=== PATIENT | female | born 1985 | race Caucasian/White ===

== ENCOUNTER 2018-09-01 10:50 | Emergency (ER) | payer MEDICAID ==
[~2018-09-01] VITALS: Ht 165.1 cm; Wt 81.6 kg
[2018-09-01 11:00] VITALS: BP 123/81
--- NOTE | 2018-09-01 11:05 | NUR ---
33 Y F BIB FAMILY WITH C/O HEARING CLICKING SOUND INITIALLY ON HER LT EAR AND NOW ON HER RT EAR WELL X 1 WK. PT STATES THE CLICKING FEELS IF A CLOCK WERE INSIDE OF HER HEAD. VSS. [id number]. STATES HER SYMPTOMS INCREASE HER ANXIETY. BED IS DOWN, LOCKED, BED RAIL X 1, ERMD NOTIFIED. DENIES HEARING LOSS, PAIN, DISCHARGE, OR NVD HX; DENIES RX; DENIES
--- NOTE | 2018-09-01 11:33 | NUR ---
Dr. Strauss evaluating patient at bedside.
--- NOTE | 2018-09-01 12:19 | NUR ---
PT LEFT WITHOUT DISCHARGE INSTRUCTIONS
--- NOTE | 2018-09-01 12:20 | NUR ---
Patient discharged with v/s stable. Written and verbal after care instructions given and explained. Patient verbalized understanding. Ambulatory with steady gait. All questions addressed prior to discharge. Advised to follow up with PMD.
== END 2018-09-01 12:20 | disposition home or self-care (01) ==
LOC: MED 10:50
DX: T70.0XXA Otitic barotrauma, initial encounter (principal); X58.XXXA Exposure to other specified factors, initial encounter
CPT/HCPCS: 99281

== ENCOUNTER 2021-08-11 21:18 | Emergency (ER) | payer MEDICAID ==
[~2021-08-11] VITALS: Ht 167.6 cm; Wt 87.5 kg
[2021-08-11 21:20] VITALS: BP 150/89
--- NOTE | 2021-08-11 21:20 | NUR ---
TO LOBBY A/W BED AMBULATORY
--- NOTE | 2021-08-11 21:54 | NUR ---
LABS OBTAINED BY UX ARCHITECT
--- NOTE | 2021-08-11 21:54 | NUR ---
pt taken to bed 05.
[2021-08-11 22:06] LABS: BASOPHILS % (AUTO) 0.4 % (0.0-2.0); EOSINOPHILS # (AUTO) 0.3 K/uL (0-0.4); EOSINOPHILS % (AUTO) 4.5 % (0.0-4.0); HEMATOCRIT 32.4 % (36-48); HEMOGLOBIN 10.3 g/dL (12.0-16.0); LYMPHOCYTES # (AUTO) 1.6 K/uL (2.5-16.5); LYMPHOCYTES % (AUTO) 22.6 % (20.5-51.1); MEAN CORPUSCULAR HEMOGLOBIN 25 pg (27-31); MEAN CORPUSCULAR HGB CONC 32 g/dL (33-37); MEAN CORPUSCULAR VOLUME 78.3 fL (80-94); MONOCYTES # (AUTO) 0.5 K/uL (0.8-1.0); MONOCYTES % (AUTO) 6.8 % (1.7-9.3); NEUTROPHILS # (AUTO) 4.7 K/uL (1.8-7.7); NEUTROPHILS % (AUTO) 65.7 % (42.2-75.2); PLATELET COUNT (AUTO) 378 K/uL (140-450); RED BLOOD CELL COUNT(AUTO) 4.14 MIL/uL (4.20-5.40); RED CELL DISTRIBUTION WIDTH 14.6 % (11.6-13.7); WHITE BLOOD COUNT (AUTO) 7.1 K/uL (4.8-10.8)
--- NOTE | 2021-08-11 22:13 | NUR ---
36 Y/O FEMALE BIB , C/O SYNCOPAL EVENT PRIOR TO ER ARRIVAL. PATIENT PRESENTS TO ED WITH ABDOMINAL PAIN AND RECTAL BLEEDING. PT STATES SHE HAS A HX OF COLITIS AND HAS BEEN [employer] UPS; INTERMITTENT RECTAL BLEEDING FOR THE PAST MONTH WITH PUS FOR THE PAST WEE; TODAY SHE HAD ASSOCIATED PAIN AND A SYNCOPAL EVENT WITH 5 SECONDS OF LOC. DENIES DIARRHEA; SKIN IS PINK/WARM/DRY; AAOX4 WITH EVEN AND STEADY GAIT; LUNGS CLEAR BL; HR EVEN AND REGULAR; PT DENIES ANY FEVER, CP, SOB, OR COUGH AT THIS TIME; PATIENT STATES PAIN OF 0/10 AT THIS TIME; VSS; PATIENT POSITIONED FOR COMFORT; HOB ELEVATED; BEDRAILS UP X2; BED DOWN. ER MD MADE AWARE OF PT STATUS. HX: COLITIS NKDA MEDS: UNKNOWN COLITIS MEDS
--- NOTE | 2021-08-11 22:17 | NUR ---
provided pt wt urine cup and water
--- NOTE | 2021-08-11 22:18 | NUR ---
PT WAS GIVEN CUP FOR URINE BUT STATES THAT SHE IS UNABLE TO GO AT THIS TIME.
[2021-08-11] MEDS ORDERED: ONDANSETRON 4 MG ODT PO ONE (22:20)
[2021-08-11] MEDS ORDERED: ALUMINUM HYD/MAG/SIMETHICONE 30 ML UDC PO ONE (22:20)
[2021-08-11 22:26] LABS: ALBUMIN 3.4 g/dL (3.4-5.0); ANION GAP 10.3 (8-16); CARBON DIOXIDE 27.5 mmol/L (21-32); CREATININE 0.5 mg/dL (0.6-1.3); POTASSIUM 3.8 mmol/L (3.5-5.1); TOTAL BILIRUBIN 0.2 mg/dL (0.0-1.0)
--- NOTE | 2021-08-11 22:37 | NUR ---
walked urine sample over to lab
--- NOTE | 2021-08-11 22:41 | NUR ---
PT TAKEN TO CT VIA JM
[2021-08-11 22:51] LABS: APPEARANCE,URINE CLEAR (CLEAR); BILIRUBIN,URINE NEGATIVE (NEGATIVE); BLOOD, URINE TRACE-L (NEGATIVE); COLOR,URINE YELLOW (YELLOW); LEUKOCYTE ESTERASE ,URINE NEGATIVE (NEGATIVE); NITRITE, URINE NEGATIVE (NEGATIVE); UGLUCOSE NEGATIVE (NEGATIVE)
[2021-08-11 23:43] LABS: RBC,URINE 0-5 /HPF (0-5); WBC,URINE 0-5 /HPF (0-5)
--- NOTE | 2021-08-12 01:08 | NUR ---
PT IS RESTING COMFORTABLY IN BED; EASILY AROUSABLE; SPOUSE AT BEDSIDE.
[2021-08-12 02:29] VITALS: BP 105/64
--- NOTE | 2021-08-12 02:31 | NUR ---
Patient discharged with v/s stable. Written and verbal after care instructions given and explained. Patient verbalized understanding. Ambulatory with steady gait. All questions addressed prior to discharge. Advised to follow up with PMD. VSS, A/OX4, UNLABORED BREATHING, AMBULATORY, AND CALM DEMEANOR.
== END 2021-08-12 02:27 | disposition home or self-care (01) ==
LOC: MED 21:18
DX: K62.89 Other specified diseases of anus and rectum (principal); K62.5 Hemorrhage of anus and rectum; R55 Syncope and collapse; D64.9 Anemia, unspecified; F17.210 Nicotine dependence, cigarettes, uncomplicated; Z98.890 Other specified postprocedural states
CPT/HCPCS: 36415; 74176; 80053; 81001; 81025; 85025; 86886; 86900; 86901; 99285; Q0162

== ENCOUNTER 2021-08-26 21:15 | Emergency (ER) | payer MEDICAID ==
[~2021-08-26] VITALS: Ht 167.6 cm; Wt 86.2 kg
[2021-08-26 21:25] VITALS: BP 120/62
--- NOTE | 2021-08-26 21:25 | NUR ---
TO BED VIA W/C
--- NOTE | 2021-08-26 21:34 | NUR ---
RAD AT BEDSIDE.
--- NOTE | 2021-08-26 21:41 | NUR ---
36 YO F BIB SELF WITH C.C OF 03/12 RT ANKLE PAIN S/P XYESTERDAY. PT STATES HER 12 YO SON WAS CHASING AFTER HER AFTER SHE TOOK HIS PHONE, TRIPPED AND FELL. DENIES LOC. PT STATES SHE MAY HAVE ROLLED HER ANKLE. PT TOOK TYLENOL THIS AM WITH NO RELIEF. PT STATES SHE DOES NOT WANT NARCOTICS PREFERS IBUPROFEN. LIMITED ROM D/T MOVEMENT. SWELLING PRESENT. HX:ANXIETY RX:lexapro NKA
[2021-08-26] MEDS ORDERED: NAPR-54 PO (22:30)
[2021-08-26 22:50] VITALS: BP 120/62
== END 2021-08-26 22:50 | disposition home or self-care (01) ==
LOC: MED 21:15
DX: S93.401A Sprain of unspecified ligament of right ankle, initial encounter (principal); Z79.899 Other long term (current) drug therapy; Z98.890 Other specified postprocedural states; W18.09XA Striking against other object with subsequent fall, initial encounter; Y93.02 Activity, running; Y92.89 Other specified places as the place of occurrence of the external cause; Y99.8 Other external cause status
CPT/HCPCS: 29505; 73610; 99283

== ENCOUNTER 2022-04-17 18:19 | Emergency (ER) | payer MEDICAID, OTHER ==
[~2022-04-17] VITALS: Ht 167.6 cm; Wt 90.7 kg
[~2022-04-17 18:19] MED LIST: NAPR-54 PO
--- NOTE | 2022-04-17 19:05 | NUR ---
CALLEDX1. NO SHOW.
--- NOTE | 2022-04-17 19:05 | NUR ---
Deangelo bo in EDM - 04/17/22 at 2019 by [facility] PATIENT LEFT WITHOUT BEING SEEN BY DR. DANIELSON. NO FURTHER CARE PROVIDED FOR PATIENT.
--- NOTE | 2022-04-17 19:10 | NUR ---
Deangelo bo in [facility] - 04/17/22 at 2019 by JUAN CALLED FOR THR SECOND TIME , NO RESPONSE
--- NOTE | 2022-04-17 19:18 | NUR ---
Deangelo bo in [facility] - 04/17/22 at 2019 by JUAN CALLED FOR THE THIRD TIME , NO RESPONSE
[2022-04-17 20:13] VITALS: BP 146/87
--- NOTE | 2022-04-17 20:15 | NUR ---
PATIENT RETURN BACK .
--- NOTE | 2022-04-17 20:16 | NUR ---
TO LOBBY A/W BED AMBULATORY
[2022-04-17 22:38] LABS: BASOPHILS % (AUTO) 0.4 % (0.0-2.0); EOSINOPHILS # (AUTO) 0.5 K/uL (0-0.4); EOSINOPHILS % (AUTO) 6.5 % (0.0-4.0); HEMATOCRIT 26.2 % (36-48); HEMOGLOBIN 7.9 g/dL (12.0-16.0); LYMPHOCYTES # (AUTO) 1.9 K/uL (2.5-16.5); LYMPHOCYTES % (AUTO) 25.8 % (20.5-51.1); MEAN CORPUSCULAR HEMOGLOBIN 20 pg (27-31); MEAN CORPUSCULAR HGB CONC 30 g/dL (33-37); MEAN CORPUSCULAR VOLUME 65.4 fL (80-94); MONOCYTES # (AUTO) 0.5 K/uL (0.8-1.0); MONOCYTES % (AUTO) 6.8 % (1.7-9.3); NEUTROPHILS # (AUTO) 4.5 K/uL (1.8-7.7); NEUTROPHILS % (AUTO) 60.5 % (42.2-75.2); PLATELET COUNT (AUTO) 368 K/uL (140-450); RED BLOOD CELL COUNT(AUTO) 4.01 MIL/uL (4.20-5.40); RED CELL DISTRIBUTION WIDTH 17.3 % (11.6-13.7); WHITE BLOOD COUNT (AUTO) 7.4 K/uL (4.8-10.8)
[2022-04-17 22:39] LABS: APPEARANCE,URINE CLEAR (CLEAR); BILIRUBIN,URINE NEGATIVE (NEGATIVE); BLOOD, URINE NEGATIVE (NEGATIVE); COLOR,URINE YELLOW (YELLOW); LEUKOCYTE ESTERASE ,URINE NEGATIVE (NEGATIVE); NITRITE, URINE NEGATIVE (NEGATIVE); UGLUCOSE NEGATIVE (NEGATIVE)
[2022-04-17 22:55] LABS: ALBUMIN 2.9 g/dL (3.4-5.0); ANION GAP 8.8 (8-16); CARBON DIOXIDE 31.7 mmol/L (21-32); CREATININE 0.7 mg/dL (0.6-1.3); POTASSIUM 3.5 mmol/L (3.5-5.1); TOTAL BILIRUBIN 0.2 mg/dL (0.0-1.0)
[2022-04-18] MEDS ORDERED: FERR325E14 PO (00:35)
[2022-04-18 00:45] VITALS: BP 146/87
--- NOTE | 2022-04-18 00:45 | NUR ---
Patient discharged with v/s stable. Written and verbal after care instructions given and explained. Patient alert, oriented and verbalized understanding of instructions. Ambulatory with steady gait. All questions addressed prior to discharge. ID band removed. Patient advised to follow up with PMD. Rx of IRON given. Patient educated on indication of medication including possible reaction and side effects. Opportunity to ask questions provided and answered.
== END 2022-04-18 00:45 | disposition home or self-care (01) ==
LOC: MED 18:19
DX: K92.2 Gastrointestinal hemorrhage, unspecified (principal); D64.9 Anemia, unspecified; K51.90 Ulcerative colitis, unspecified, without complications
CPT/HCPCS: 36415; 74018; 80053; 81003; 83690; 85025; 99284

== ENCOUNTER 2022-05-30 01:05 | Emergency (ER) | payer MEDICAID ==
[~2022-05-30] VITALS: Ht 167.6 cm; Wt 113.4 kg
[~2022-05-30 01:05] MED LIST changes: +FERR325E14 PO
[2022-05-30 01:30] VITALS: BP 136/72
--- NOTE | 2022-05-30 01:34 | NUR ---
TO LOBBY A/W BED AMBULATORY
[2022-05-30] MEDS ORDERED: MORPHINE SULFATE 2 MG/ML SYR IVP STA (02:54)
[2022-05-30] MEDS ORDERED: METOCLOPRAMIDE 10 MG/2 ML INJ VIAL IVP ONE (02:55)
[2022-05-30] MEDS ORDERED: diphenhydrAMINE 50 MG/ML VIAL IVP ONE (02:55)
[2022-05-30] MEDS ORDERED: NACL 0.9% 1,000 ML IV ONE ×2 (02:55→05:15)
[2022-05-30 03:14] LABS: BASOPHILS % (AUTO) 0.2 % (0.0-2.0); EOSINOPHILS # (AUTO) 0.8 K/uL (0-0.4); HEMATOCRIT 31.2 % (36-48); HEMOGLOBIN 9.8 g/dL (12.0-16.0); LYMPHOCYTES # (AUTO) 1.2 K/uL (2.5-16.5); LYMPHOCYTES % (AUTO) 11.9 % (20.5-51.1); MEAN CORPUSCULAR HEMOGLOBIN 22 pg (27-31); MEAN CORPUSCULAR HGB CONC 31 g/dL (33-37); MEAN CORPUSCULAR VOLUME 71.7 fL (80-94); MONOCYTES # (AUTO) 0.8 K/uL (0.8-1.0); NEUTROPHILS # (AUTO) 7.5 K/uL (1.8-7.7); NEUTROPHILS % (AUTO) 71.9 % (42.2-75.2); PLATELET COUNT (AUTO) 488 K/uL (140-450); RED BLOOD CELL COUNT(AUTO) 4.35 MIL/uL (4.20-5.40); RED CELL DISTRIBUTION WIDTH 24.3 % (11.6-13.7); WHITE BLOOD COUNT (AUTO) 10.4 K/uL (4.8-10.8)
[2022-05-30 03:27] LABS: APPEARANCE,URINE CLEAR (CLEAR); BILIRUBIN,URINE 2+ (NEGATIVE); BLOOD, URINE 3+ (NEGATIVE); COLOR,URINE BROWN (YELLOW); LEUKOCYTE ESTERASE ,URINE NEGATIVE (NEGATIVE); NITRITE, URINE NEGATIVE (NEGATIVE); PH,URINE 5.5 (5.0-9.0); UGLUCOSE NEGATIVE (NEGATIVE)
[2022-05-30 03:35] LABS: RBC,URINE >20 (MANY) /HPF (0-5); WBC,URINE 0-5 /HPF (0-5)
[2022-05-30 03:43] LABS: ALBUMIN 2.7 g/dL (3.4-5.0); ANION GAP 13.8 (8-16); CARBON DIOXIDE 29.6 mmol/L (21-32); CREATININE 0.7 mg/dL (0.6-1.3); POTASSIUM 3.4 mmol/L (3.5-5.1); TOTAL BILIRUBIN 0.2 mg/dL (0.0-1.0)
[2022-05-30] MEDS ORDERED: DICYCLOMINE HCL LIQUID 20 MG, ALUMINUM HYD/MAG/SIMETHICONE 30 ML, LIDOCAINE VISCOUS 2% ... PO ONE ×3 (05:15)
[2022-05-30] MEDS ORDERED: DICYCLOMINE HCL LIQUID 10 MG/5 ML UDC ONE (05:18)
[2022-05-30] MEDS ORDERED: ALUMINUM HYD/MAG/SIMETHICONE 30 ML UDC ONE (05:18)
[2022-05-30] MEDS ORDERED: ONDA-188 PO (06:06)
[2022-05-30] MEDS ORDERED: FAMO-90 PO (06:06)
[2022-05-30] MEDS ORDERED: ACET-9525 PO ×2 (06:06→06:08)
[2022-05-30 07:04] VITALS: BP 106/66
--- NOTE | 2022-05-30 07:09 | NUR ---
Patient discharged with v/s stable. Written and verbal after care instructions given and explained. Patient alert, oriented and verbalized understanding of instructions. Ambulatory with steady gait. All questions addressed prior to discharge. ID band removed. Patient advised to follow up with PMD. Rx of norco, famotidine, zofran given. Patient educated on indication of medication including possible reaction and side effects. Opportunity to ask questions provided and answered.
[2022-05-31] MEDS ORDERED: ONDANSETRON 4 MG/2 ML VIAL ONE (22:12)
[2022-05-31] MEDS ORDERED: MESA500C PO (23:44)
[2022-05-31] MEDS ORDERED: PRED10TA5 PO (23:44)
[2022-05-31] MEDS ORDERED: IMU50 PO (23:44)
[2022-05-31] MEDS ORDERED: ESCI20TA PO (23:44)
[2022-05-31] MEDS ORDERED: ACET-10509 PO (23:46)
[2022-05-31] MEDS ORDERED: CALC-575 PO (23:46)
== END 2022-05-30 07:09 | disposition home or self-care (01) ==
LOC: MED 01:05
DX: K85.90 Acute pancreatitis without necrosis or infection, unspecified (principal); K51.90 Ulcerative colitis, unspecified, without complications; R11.10 Vomiting, unspecified; Z79.899 Other long term (current) drug therapy
CPT/HCPCS: 36415; 74176; 80053; 81001; 81025; 83690; 85025; 85651; 86140; 87086; 96361; 96374; 96375; 99285; J1200; J2270; J2765; J2405

== ENCOUNTER 2022-05-31 17:32 | Inpatient (IN) | payer MEDICAID ==
[~2022-05-31] VITALS: Ht 167.6 cm; Wt 83.0 kg
[~2022-05-31 17:32] MED LIST changes: +ACET-9525 PO; +FAMO-90 PO; +ONDA-188 PO
[2022-05-31 17:55] VITALS: BP 132/70
[2022-05-31] MEDS ORDERED: MORPHINE SULFATE 4 MG/ML SYR IVP ONE (18:50)
[2022-05-31] MEDS ORDERED: DICYCLOMINE 20 MG/2 ML VIAL IM ONE (18:50)
[2022-05-31] MEDS ORDERED: NACL 0.9% 2,000 ML IV ONE (18:50)
[2022-05-31] MEDS ORDERED: ONDANSETRON 4 MG/2 ML VIAL IVP ONE (18:50)
[2022-05-31 19:11] LABS: BASOPHILS % (AUTO) 0.5 % (0.0-2.0); EOSINOPHILS % (AUTO) 0.5 % (0.0-4.0); HEMATOCRIT 30.3 % (36-48); HEMOGLOBIN 9.3 g/dL (12.0-16.0); LYMPHOCYTES # (AUTO) 1.1 K/uL (2.5-16.5); LYMPHOCYTES % (AUTO) 12.1 % (20.5-51.1); MEAN CORPUSCULAR HEMOGLOBIN 22 pg (27-31); MEAN CORPUSCULAR HGB CONC 31 g/dL (33-37); MEAN CORPUSCULAR VOLUME 72.6 fL (80-94); MONOCYTES # (AUTO) 0.4 K/uL (0.8-1.0); MONOCYTES % (AUTO) 4.4 % (1.7-9.3); NEUTROPHILS # (AUTO) 7.3 K/uL (1.8-7.7); NEUTROPHILS % (AUTO) 82.5 % (42.2-75.2); PLATELET COUNT (AUTO) 521 K/uL (140-450); RED BLOOD CELL COUNT(AUTO) 4.17 MIL/uL (4.20-5.40); RED CELL DISTRIBUTION WIDTH 23.7 % (11.6-13.7); WHITE BLOOD COUNT (AUTO) 8.9 K/uL (4.8-10.8)
[2022-05-31 19:35] LABS: APPEARANCE,URINE HAZY (CLEAR); BILIRUBIN,URINE NEGATIVE (NEGATIVE); BLOOD, URINE 3+ (NEGATIVE); COLOR,URINE DARK YELLOW (YELLOW); LEUKOCYTE ESTERASE ,URINE NEGATIVE (NEGATIVE); NITRITE, URINE NEGATIVE (NEGATIVE); PH,URINE 6.5 (5.0-9.0); UGLUCOSE NEGATIVE (NEGATIVE)
[2022-05-31 19:38] LABS: ALBUMIN 2.4 g/dL (3.4-5.0); ANION GAP 10.3 (8-16); CARBON DIOXIDE 30.9 mmol/L (21-32); CREATININE 0.7 mg/dL (0.6-1.3); POTASSIUM 3.2 mmol/L (3.5-5.1); TOTAL BILIRUBIN 0.2 mg/dL (0.0-1.0)
[2022-05-31] MEDS ORDERED: KCL 20 MEQ/WATER INJ PREMIX 100 ML IV ONE (19:55)
[2022-05-31 19:58] LABS: BARBITURATE, URINE NEGATIVE ng/ml (NEG <=200); BENZODIAZEPINE, URINE NEGATIVE ng/mL (NEG <=200); CANNABINOID, URINE NEGATIVE ng/mL (NEG <=50); COCAINE, URINE NEGATIVE ng/mL (NEG <=300); OPIATE, URINE POSITIVE ng/mL (NEG <=2000); PHENCYCLIDINE SCREEN,URINE NEGATIVE ng/mL (NEG <=25)
[2022-05-31 19:59] LABS: WBC,URINE 0-5 /HPF (0-5)
[2022-05-31 20:00] LABS: URINE AMORPHOUS URATE 3+ /HPF (None Seen)
[2022-05-31] MEDS ORDERED: POTASSIUM CHLORIDE 10 MEQ TABER PO PRN (21:55)
[2022-05-31] MEDS ORDERED: traZODone 50 MG TAB PO SCH (21:55)
[2022-05-31] MEDS ORDERED: ACETAMINOPHEN 325 MG TAB PO PRN ×2 (21:55→22:45)
[2022-05-31] MEDS ORDERED: DOCUSATE SODIUM 100 MG GELCAP PO PRN (21:55)
[2022-05-31] MEDS ORDERED: ONDANSETRON 4 MG/2 ML VIAL IVP PRN (21:55)
[2022-05-31] MEDS ORDERED: ZOLPIDEM 10 MG TAB PO PRN (21:55)
[2022-05-31] MEDS ORDERED: MAG SULF 2000 MG/WATER PREMIX 50 ML IV PRN ×2 (21:55→22:45)
[2022-05-31] MEDS ORDERED: MORPHINE SULFATE 2 MG/ML SYR IVP PRN (21:55)
[2022-05-31] MEDS ORDERED: LORazepam 2 MG/ML VIAL IVP PRN (21:55)
[2022-05-31] MEDS ORDERED: NACL 0.9% 1,000 ML IV SCH (22:00)
[2022-05-31] MEDS ORDERED: MORPHINE SULFATE 4 MG/ML SYR IVP PRN (22:45)
[2022-05-31] MEDS ORDERED: MAGNESIUM OXIDE 400 MG TAB PO PRN (22:45)
[2022-05-31] MEDS ORDERED: KCL 20 MEQ/WATER INJ PREMIX 200 ML IV PRN (22:45)
[2022-05-31] MEDS ORDERED: MESA500C PO (23:44)
[2022-05-31] MEDS ORDERED: ESCI20TA PO (23:44)
[2022-05-31] MEDS ORDERED: IMU50 PO (23:44)
[2022-05-31] MEDS ORDERED: PRED10TA5 PO (23:44)
[2022-05-31] MEDS ORDERED: CALC-575 PO (23:46)
[2022-05-31] MEDS ORDERED: ACET-10509 PO (23:46)
[2022-05-31] MEDS: LACTATED RINGERS 1,000 ML IV SCH (23:55)
[2022-06-01] MEDS: LACTATED RINGERS 1,000 ML IV SCH ×3 (06:15→18:45)
[2022-06-01 07:00] LABS: BASOPHILS % (AUTO) 0.2 % (0.0-2.0); EOSINOPHILS # (AUTO) 0.9 K/uL (0-0.4); EOSINOPHILS % (AUTO) 8.8 % (0.0-4.0); HEMATOCRIT 28.9 % (36-48); HEMOGLOBIN 9.1 g/dL (12.0-16.0); LYMPHOCYTES # (AUTO) 1.8 K/uL (2.5-16.5); LYMPHOCYTES % (AUTO) 16.9 % (20.5-51.1); MEAN CORPUSCULAR HEMOGLOBIN 23 pg (27-31); MEAN CORPUSCULAR HGB CONC 31 g/dL (33-37); MEAN CORPUSCULAR VOLUME 71.7 fL (80-94); MONOCYTES # (AUTO) 0.9 K/uL (0.8-1.0); MONOCYTES % (AUTO) 8.1 % (1.7-9.3); NEUTROPHILS # (AUTO) 7.1 K/uL (1.8-7.7); PLATELET COUNT (AUTO) 539 K/uL (140-450); RED BLOOD CELL COUNT(AUTO) 4.03 MIL/uL (4.20-5.40); RED CELL DISTRIBUTION WIDTH 24.4 % (11.6-13.7); WHITE BLOOD COUNT (AUTO) 10.7 K/uL (4.8-10.8)
[2022-06-01 07:11] LABS: ALBUMIN 2.2 g/dL (3.4-5.0); ANION GAP 9.4 (8-16); CARBON DIOXIDE 30.8 mmol/L (21-32); CREATININE 0.6 mg/dL (0.6-1.3); POTASSIUM 3.2 mmol/L (3.5-5.1); TOTAL BILIRUBIN 0.2 mg/dL (0.0-1.0)
[2022-06-01] MEDS: PANTOPRAZOLE 40 MG INJ VIAL IVP SCH (08:55)
[2022-06-01] MEDS ORDERED: PANTOPRAZOLE 40 MG INJ VIAL IVP SCH (09:00)
[2022-06-01] MEDS: predniSONE 10 MG TAB PO SCH (10:49)
[2022-06-01] MEDS ORDERED: MESALAMINE 800 MG PO SCH (13:00)
[2022-06-01] MEDS: MESALAMINE 400 MG CAPSULE.DR PO SCH ×2 (13:51→21:00)
[2022-06-01] MEDS: HYDROcodone/APAP 5/325 MG 1 TAB TAB PO PRN (17:17)
[2022-06-01] MEDS ORDERED: ONDANSETRON 4 MG/2 ML VIAL IVP PRN (18:10)
[2022-06-01] MEDS ORDERED: SIMETHICONE 80 MG TAB.CHEW PO PRN (18:10)
[2022-06-01] MEDS ORDERED: ONDANSETRON 4 MG/2 ML VIAL ONE (18:14)
[2022-06-01] MEDS: DICYCLOMINE 10 MG CAP PO SCH (21:56)
[2022-06-02] VITALS: BP 114/62
[2022-06-02] MEDS: LACTATED RINGERS 1,000 ML IV SCH ×4 (03:00→23:00)
[2022-06-02 04:00] VITALS: BP 122/71
[2022-06-02] MEDS: MESALAMINE 400 MG CAPSULE.DR PO SCH ×3 (05:07→20:32)
[2022-06-02 05:30] LABS: BASOPHILS % (AUTO) 0.3 % (0.0-2.0); EOSINOPHILS # (AUTO) 0.6 K/uL (0-0.4); EOSINOPHILS % (AUTO) 7.8 % (0.0-4.0); HEMOGLOBIN 8.3 g/dL (12.0-16.0); LYMPHOCYTES # (AUTO) 1.8 K/uL (2.5-16.5); LYMPHOCYTES % (AUTO) 23.7 % (20.5-51.1); MEAN CORPUSCULAR HEMOGLOBIN 23 pg (27-31); MEAN CORPUSCULAR HGB CONC 32 g/dL (33-37); MEAN CORPUSCULAR VOLUME 71.8 fL (80-94); MONOCYTES # (AUTO) 0.9 K/uL (0.8-1.0); NEUTROPHILS # (AUTO) 4.3 K/uL (1.8-7.7); NEUTROPHILS % (AUTO) 56.2 % (42.2-75.2); PLATELET COUNT (AUTO) 465 K/uL (140-450); RED BLOOD CELL COUNT(AUTO) 3.62 MIL/uL (4.20-5.40); RED CELL DISTRIBUTION WIDTH 23.6 % (11.6-13.7); WHITE BLOOD COUNT (AUTO) 7.6 K/uL (4.8-10.8)
[2022-06-02 05:38] LABS: ALBUMIN 1.8 g/dL (3.4-5.0); CARBON DIOXIDE 31.3 mmol/L (21-32); CREATININE 0.5 mg/dL (0.6-1.3); MAGNESIUM 1.9 mg/dL (1.8-2.4); POTASSIUM 3.3 mmol/L (3.5-5.1); TOTAL BILIRUBIN 0.2 mg/dL (0.0-1.0)
[2022-06-02] MEDS: DICYCLOMINE 10 MG CAP PO SCH ×4 (08:17→20:31)
[2022-06-02] MEDS: predniSONE 10 MG TAB PO SCH (08:17)
[2022-06-02] MEDS: PANTOPRAZOLE 40 MG INJ VIAL IVP SCH (08:18)
[2022-06-02] MEDS: POTASSIUM CHLORIDE 10 MEQ TABER PO PRN (08:18)
[2022-06-02] MEDS: HYDROcodone/APAP 5/325 MG 1 TAB TAB PO PRN ×3 (08:32→20:33)
[2022-06-02 11:27] LABS: BASOPHILS % (AUTO) 0.4 % (0.0-2.0); EOSINOPHILS # (AUTO) 0.3 K/uL (0-0.4); HEMOGLOBIN 8.1 g/dL (12.0-16.0); MONOCYTES # (AUTO) 0.6 K/uL (0.8-1.0)
[2022-06-02 11:31] LABS: EOSINOPHILS % (AUTO) 5.1 % (0.0-4.0); HEMATOCRIT 25.8 % (36-48); LYMPHOCYTES # (AUTO) 1.3 K/uL (2.5-16.5); LYMPHOCYTES % (AUTO) 18.8 % (20.5-51.1); MEAN CORPUSCULAR HEMOGLOBIN 23 pg (27-31); MEAN CORPUSCULAR HGB CONC 31 g/dL (33-37); MEAN CORPUSCULAR VOLUME 72.8 fL (80-94); MONOCYTES % (AUTO) 8.7 % (1.7-9.3); NEUTROPHILS # (AUTO) 4.5 K/uL (1.8-7.7); PLATELET COUNT (AUTO) 493 K/uL (140-450); RED BLOOD CELL COUNT(AUTO) 3.54 MIL/uL (4.20-5.40); RED CELL DISTRIBUTION WIDTH 23.6 % (11.6-13.7); WHITE BLOOD COUNT (AUTO) 6.7 K/uL (4.8-10.8)
[2022-06-02 16:00] VITALS: BP 113/68
[2022-06-02] MEDS: HYDROCORTISONE SUPPOSITORY 25 MG SUPP RC SCH (20:32)
[2022-06-03] VITALS: BP 117/43
[2022-06-03] MEDS: LACTATED RINGERS 1,000 ML IV SCH (04:05)
[2022-06-03] MEDS: MESALAMINE 400 MG CAPSULE.DR PO SCH (05:58)
[2022-06-03] MEDS: HYDROcodone/APAP 5/325 MG 1 TAB TAB PO PRN ×2 (06:39→10:54)
[2022-06-03 07:15] LABS: ALBUMIN 1.8 g/dL (3.4-5.0); ANION GAP 8.8 (8-16); CARBON DIOXIDE 30.4 mmol/L (21-32); CREATININE 0.5 mg/dL (0.6-1.3); MAGNESIUM 1.8 mg/dL (1.8-2.4); POTASSIUM 3.2 mmol/L (3.5-5.1); TOTAL BILIRUBIN 0.1 mg/dL (0.0-1.0)
[2022-06-03 08:00] VITALS: BP 121/84
[2022-06-03] MEDS: POTASSIUM CHLORIDE 10 MEQ TABER PO PRN (08:41)
[2022-06-03] MEDS: predniSONE 10 MG TAB PO SCH (08:41)
[2022-06-03] MEDS: DICYCLOMINE 10 MG CAP PO SCH (08:41)
[2022-06-03] MEDS: HYDROCORTISONE SUPPOSITORY 25 MG SUPP RC SCH (08:42)
[2022-06-03 08:43] LABS: HEMOGLOBIN 8.1 g/dL (12.0-16.0); MEAN CORPUSCULAR HEMOGLOBIN 23 pg (27-31); MEAN CORPUSCULAR HGB CONC 31 g/dL (33-37); MEAN CORPUSCULAR VOLUME 72.6 fL (80-94); PLATELET COUNT (AUTO) 478 K/uL (140-450); RED BLOOD CELL COUNT(AUTO) 3.58 MIL/uL (4.20-5.40); RED CELL DISTRIBUTION WIDTH 23.6 % (11.6-13.7); WHITE BLOOD COUNT (AUTO) 7.1 K/uL (4.8-10.8)
[2022-06-03 08:51] LABS: LYMPHOCYTES % (MANUAL) 44 % (20-46)
[2022-06-03 08:52] LABS: EOSINOPHILS % (MANUAL) 6 % (0-4); MONOCYTES % (MANUAL) 8 % (5-12); OTHER CELLS,MANUAL % 1 (0-0)
[2022-06-03] MEDS ORDERED: PANTOPRAZOLE 40 MG TABEC PO SCH (09:00)
[2022-06-03] MEDS ORDERED: ACET-9525 PO (11:36)
[2022-06-03] MEDS ORDERED: PRED20TA5 PO (11:40)
[2022-06-03] MEDS ORDERED: ACET-8905 PO (11:41)
[2022-06-03 12:29] VITALS: BP 122/69
== END 2022-06-03 13:30 | disposition home or self-care (01) | DRG 282 ==
LOC: MED 17:32 → MTU 21:52
PROVIDERS: ADMIT Hospitalist; ATTEND Hospitalist
DX: K85.30 Drug induced acute pancreatitis without necrosis or infection (principal); K51.911 Ulcerative colitis, unspecified with rectal bleeding; D50.0 Iron deficiency anemia secondary to blood loss (chronic); E66.9 Obesity, unspecified; Z20.822 Contact with and (suspected) exposure to COVID-19; E78.5 Hyperlipidemia, unspecified; I10 Essential (primary) hypertension; K21.9 Gastro-esophageal reflux disease without esophagitis; Z68.29 Body mass index [BMI] 29.0-29.9, adult; T45.1X5A Adverse effect of antineoplastic and immunosuppressive drugs, initial encounter; Y92.009 Unspecified place in unspecified non-institutional (private) residence as the place of occurrence of the external cause
CPT/HCPCS: 36415; 80053; 80305; 81001; 83690; 83735; 84478; 85025; 86140; 87081; 96361; 96372; 96374; 96375; 99285; C9113; J0500; J2270; J2405; J3480; J7120; J7512